=== PATIENT | female | born 1980 | race Caucasian/White ===

== ENCOUNTER 2016-03-08 13:39 | Day surgery (SDC) | payer OTHER ==
[2016-03-05 17:21] VITALS: BMI 27.5
[~2016-03-08] VITALS: Ht 157.5 cm; Wt 78.0 kg
[2016-03-08] VITALS (14 sets, daily range): BP systolic 102–136; BP diastolic 53–72; PULSE 84–102; RESP 18–35; Ht 157.5 cm; Wt 78.0 kg
[~2016-03-08 13:39] MED LIST: CEFAZOLIN 1 GM INJ ONE
[2016-03-08] MEDS ORDERED: PROPOFOL 100 ML ONE (14:52)
[2016-03-08] MEDS ORDERED: GLYCOPYRROLATE 1 MG INJ ONE (14:52)
[2016-03-08] MEDS ORDERED: NEOSTIGMINE 3 MG/3 ML SYRINGE ONE (14:52)
[2016-03-08] MEDS ORDERED: ROCURONIUM 50 MG INJ ONE (14:52)
[2016-03-08] MEDS ORDERED: ONDANSETRON 4 MG INJ ONE (14:53)
[2016-03-08] MEDS ORDERED: FENTAnyl 50 MCG/ML VIAL ONE ×3 (14:53→19:18)
[2016-03-08] MEDS ORDERED: DEXAMETHASONE 4 MG/ML 1 ML INJ ONE (14:53)
[2016-03-08] MEDS ORDERED: MIDAZOLAM 1 MG/ML 2 ML INJ ONE (14:53)
[2016-03-08] MEDS ORDERED: ROPIVACAINE 0.5 % 30 ML VIAL ONE ×2 (14:58→18:57)
[2016-03-08] MEDS ORDERED: PERCOCET PO (15:00)
[2016-03-08] MEDS ORDERED: POLYMYXIN/BACITRACIN 1L IRRIG ONE (15:21)
[2016-03-08] MEDS ORDERED: POVIDONE IODINE 10% 28.4 GM OINT ONE (15:21)
[2016-03-08] MEDS ORDERED: HYDROmorphONE (0.2 MG/ML) 10ML SYG IV PRN ×3 (17:00)
[2016-03-08] MEDS ORDERED: DIPHENHYDRAMINE 50 MG INJ IV PRN (17:00)
[2016-03-08] MEDS ORDERED: TRIMETHOBENZAMIDE 100 MG/ML VIAL IM PRN (17:00)
[2016-03-08] MEDS ORDERED: EPHEDrine SULFATE 50 MG/5 ML SYG IV PRN (17:00)
[2016-03-08] MEDS ORDERED: hydrALAzine 20 MG INJ IV PRN (17:00)
[2016-03-08] MEDS ORDERED: FENTAnyl 50 MCG/ML VIAL IV PRN ×3 (17:00)
[2016-03-08] MEDS ORDERED: LABETALOL HCL 20MG INJ IV PRN (17:00)
[2016-03-08] MEDS ORDERED: MIDAZOLAM 1 MG/ML 2 ML INJ IV PRN (17:00)
[2016-03-08] MEDS ORDERED: MEPERIDINE 25 MG INJ IV PRN (17:00)
[2016-03-08] MEDS ORDERED: ONDANSETRON 4 MG INJ IV PRN (17:00)
--- NOTE | 2016-03-08 20:21 | OPR ---
Date/Time of Note Date/Time of Note DATE: 03/08/16 TIME: 20:12 Operative Report Procedure Date: Mar 08, 2016 Preoperative Diagnosis 1. Left ankle distal fibula fracture 2. Left ankle syndesmotic widening Postoperative Diagnosis 1. Left ankle distal fibula fracture 2. Left ankle syndesmotic widening 3. 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 Left ankle distal fibula fracture ORIF 2. Left ankle syndesmotic ORIF 3. Left ankle medial talar dome OCD arthroscopic microfracture 4. Left ankle arthroscopy with extensive debridement 5. Left ankle short leg cast placement 6. use of fluoroscopy Surgeon: MIRTHA PITT MD Anesthesia: general, other (popliteal block with sapheonous locally) Anesthesiologist: David Jordan M.D. Tourniquet Time: 95 min at 250 mm Hg Estimated Blood Loss: 0 - 10 ml's Specimens none Tubes/Drains none Complications: None Pt Condition Post Procedure: stable Disposition: PACU Indications Pt is a 35 yo female who sustained a left ankle fracture while snowboarding that presented as a distal fibular fracture with syndesmotic widening. Patient was thus indicated for surgery Procedure Description Patient's correct extremity was marked in the preoperative holding area and confirmed with the patient via both consent and by patient. Patient was then brought back into the operative theater, placed supine on operative table and given preoperative anesthesia and preoperative antibiotics. Tourniquet was placed on the operative examination thigh non-sterilely. Patient was then given preoperative antibiotics and then the operative thigh was secured onto a thigh roberts flexed and all areas were well padded. Superficial peroneal nerve branches were marked appropriately. The ankle was then prepped and draped in normal sterile fashion. Time-out was taken. All parties were in agreement that this was correct patient and extremity and procedure. A soft-tissue distraction strap was applied across the ankle and a soft tissue distraction was then placed across ankle at approximately 25 pounds of force. Attention was initially turned to the ankle joint. Using a typical anteromedial and anterolateral portal with care to avoid any injury to the neurovascular structures. A 21-point ankle exam was completed revealing significant anterolateral and anterior medial ankle synovitis and a hemorrhagic nodule seen in the lateral gutter as well. Significant scar tissue was thoroughly debrided. A oblique lateral malleolus fracture and medial talar osteochondral lesion, measuring 2x2 mm, were both identified and fracture site were his irrigated thoroughly. All significant scar tissue and hematoma was thoroughly debrided. The medial and lateral and posterior gutters were thoroughly debrided. The medial talar dome OCD lesion was prepared and using a microfracture pick, 2 microfracture hole were made. The remainder of the ankle was thoroughly debrided. The ankle was thoroughly irrigated with saline. All wounds were closed with 4- 0 nylon in vertical mattress fashion and the attention was then turned to the medial aspect of the ankle. Esmarch was brought up and tourniquet was brought up to 250 mmHg. Incision was then made over the lateral aspect of the fibula and hemostasis was achieved. Fracture was identified and hematoma and scar tissue were debrided. Fracture was identified as there was a great deal of comminution at the fracture site. The fracture was then reduced with crab claws and fixed in neutralization with a distal fibular locking Arthrex ankle fracture plate. The fracture was shown to be well reduced in both the AP and lateral position with screws placed proximally and distally in a locked position. A manual external rotation stress test was then applied following placement of the plate and screws showing further widening of the medial clear space. An Arthrex ankle tightrope was placed across the syndesmosis in the usual fashion while the syndesmosis was held in reduction with a luis tong. The ankle was shown to be correctly reduced in AP, mortise and lateral position fluoroscopically. The ankle was then thoroughly irrigated with saline and the wound was then closed with 3-0 vicryl, 4-0 Monocryl followed by 4-0 nylon in a vertical mattress fashion and then dressed with Xeroform, Betadine and placement of short leg well -padded cast. There were multiple ABDs and a fourth dorsal roll was used in order to ensure this was a well-padded splint. All sponge and needle counts were correct and the patient was brought to the recovery room in a stable condition. MIRTHA PITT MD Mar 08, 2016 20:21
[2016-03-08] MEDS ORDERED: morphine 10 MG INJ IV PRN (20:30)
[2016-03-08] MEDS ORDERED: morphine 2 MG INJ IV PRN (20:30)
[2016-03-08 21:51] LABS: THYROID STIMULATING HORMONE 2.28 MIU/L (0.465-4.680)
--- NOTE | 2016-03-09 06:33 | RADRPT ---
PROCEDURE: Intraoperative imaging of the left ankle with fluoroscopy. CLINICAL INDICATION: Left ankle pain. Intraoperative. TECHNIQUE: 12 images of the left ankle were obtained in the operating room with an image intensifi er. No radiologist was in attendance. 44.7 seconds of fluoroscopy time was used. COMPARISON: No prior study is available for comparison. FINDINGS: Images demonstrate open reduction and internal fixation with a lateral plate and multiple screws tra nsfixing the distal fibula. There is also a tunnel and metal device transfixing the distal tibia an d fibula. IMPRESSION: 1. Intraoperative imaging of the left ankle. RPTAT: QQ .Claudy Springer MD, MD Date Time Electronically viewed and signed by .Claudy Springer MD, MD on 03/08/2016 22:54 .R/
== END 2016-03-08 21:07 | disposition home or self-care (01) ==
LOC: SDS 13:39
PROVIDERS: ATTEND Orthopaedic Surgery
DX: S82.62XA Displaced fracture of lateral malleolus of left fibula, initial encounter for closed fracture (principal); X58.XXXA Exposure to other specified factors, initial encounter; Y93.89 Activity, other specified; Y92.89 Other specified places as the place of occurrence of the external cause; Y99.8 Other external cause status; M24.172 Other articular cartilage disorders, left ankle
CPT/HCPCS: 27792; 29892; 73610; 82306; 83970; 84436; 84439; 84443; 84703; C1713; J0690; J1100; J2175; J2250; J2405; J2795; J3010; Z7512; Z7610; J2710